=== PATIENT | female | born 1965 | race African-American/Black ===

== ENCOUNTER 2017-11-19 09:05 | Outpatient (CLI) | payer BC | END 2017-11-19 09:06 | disposition home or self-care (01) | LOC: BICMAMMO 09:05 | PROVIDERS: ATTEND Family Medicine | DX: Z12.31 Encounter for screening mammogram for malignant neoplasm of breast (principal) | CPT/HCPCS: 77063; 77067 ==

== ENCOUNTER 2018-05-11 15:19 | Outpatient (CLI) | payer BC ==
--- NOTE | 2018-05-11 17:07 | MRI ---
MRI OF THE LUMBAR SPINE WITHOUT CONTRAST: 05/11/18 COMPARISON: None. HISTORY: Low back pain and pain extends down the left leg. TECHNIQUE: Multiplanar and multisequence MRI images were obtained of the lumbar spine without contrast. FINDINGS: The vertebral bodies and intervertebral discs demonstrate normal height and alignment without fractur e or subluxation. The conus medullaris terminates normally at L1. The prevertebral and paraspinal sof t tissues are unremarkable. T12-L1: Unremarkable. L1-2: Unremarkable. L2-3: No significant posterior bulge or protrusion. Mild bilateral posterior facet arthrosis. No neur al foraminal or central canal stenosis. L3-4: No significant posterior bulge or protrusion. Mild bilateral posterior facet arthrosis. No cent ral canal stenosis. Mild bilateral neural foraminal stenosis. L4-5: No significant posterior bulge or protrusion. No posterior facet arthrosis. No neural foraminal or central canal stenosis. L5-S1: No significant posterior bulge or protrusion. Mild to moderate bilateral posterior facet arthr osis. No central canal stenosis. Mild bilateral neural foraminal stenosis. IMPRESSION: Mild degenerative changes of the lumbar spine as above. POS: [facility]
== END 2018-05-11 15:20 | disposition home or self-care (01) ==
LOC: TBSIIMAG 15:19
PROVIDERS: ATTEND Family Medicine
DX: M54.5 Low back pain (principal); M47.896 Other spondylosis, lumbar region; M47.897 Other spondylosis, lumbosacral region
CPT/HCPCS: 72148

== ENCOUNTER 2018-11-22 08:39 | Outpatient (CLI) | payer BC | END 2018-11-22 08:40 | disposition home or self-care (01) | LOC: BICMAMMO 08:39 | PROVIDERS: ATTEND Family Medicine | DX: Z12.31 Encounter for screening mammogram for malignant neoplasm of breast (principal) | CPT/HCPCS: 77063; 77067 ==

== ENCOUNTER 2019-06-06 08:37 | Outpatient (CLI) | payer BC ==
--- NOTE | 2019-06-06 10:14 | RAD ---
LEFT MIDDLE FINGER 3 VIEWS: HISTORY: Injury and pain in the left middle finger on the DIP joint. FINDINGS/IMPRESSION: No acute fracture or dislocation is seen. POS: [facility]
== END 2019-06-06 08:38 | disposition home or self-care (01) ==
LOC: BICRAD 08:37
PROVIDERS: ATTEND Family Medicine
DX: S69.92XA Unspecified injury of left wrist, hand and finger(s), initial encounter (principal)

== ENCOUNTER 2019-12-21 09:24 | Outpatient (CLI) | payer BC ==
--- NOTE | 2019-12-21 10:11 | MMO ---
Bilateral MAMMO Bilat Screen [facility]. CLINICAL HISTORY: Patient is 54 years old and is seen for screening. VIEWS: The views performed were: bilateral craniocaudal with tomosynthesis and bilateral mediolateral oblique with tomosynthesis. FILMS COMPARED: The present examination has been compared to prior imaging studies performed at [facility] on 05/12/2016, 11/10/2016, 11/19/2017 and 11/22/2018. This study has been interpreted with the assistance of computer-aided detection. MAMMOGRAM FINDINGS: There are scattered fibroglandular densities. There are no suspicious masses, suspicious calcifications, or new areas of architectural distortion. IMPRESSION: THERE IS NO MAMMOGRAPHIC EVIDENCE OF MALIGNANCY. A ROUTINE FOLLOW-UP MAMMOGRAM IN 1 YEAR IS RECOMMENDED. THE RESULTS OF THIS EXAM WERE SENT TO THE PATIENT. ACR BI-RADS Category 1 - Negative MAMMOGRAPHY NOTE: 1. A negative mammogram report should not delay a biopsy if a dominant of clinically suspicious mass is present. 2. Approximately 10% to 15% of breast cancers are not detected by mammography. 3. Adenosis and dense breasts may obscure an underlying neoplasm. Reported by: AYLA HOBBS MD Electonically Signed: [id number]
== END 2019-12-21 09:25 | disposition home or self-care (01) ==
LOC: BICMAMMO 09:24
PROVIDERS: ATTEND Family Medicine
DX: Z12.31 Encounter for screening mammogram for malignant neoplasm of breast (principal)
CPT/HCPCS: 77063; 77067

== ENCOUNTER 2021-01-01 07:47 | Outpatient (CLI) | payer BC | END 2021-01-01 07:48 | disposition home or self-care (01) | LOC: BICMAMMO 07:47 | PROVIDERS: ATTEND Family Medicine | DX: Z12.31 Encounter for screening mammogram for malignant neoplasm of breast (principal) | CPT/HCPCS: 77063; 77067 ==

== ENCOUNTER 2021-02-18 10:38 | Outpatient (CLI) | payer BC | END 2021-02-18 10:39 | disposition home or self-care (01) | LOC: BICRAD 10:38 | PROVIDERS: ATTEND Specialist | DX: M51.16 Intervertebral disc disorders with radiculopathy, lumbar region (principal); M47.26 Other spondylosis with radiculopathy, lumbar region | CPT/HCPCS: 72110 ==

== ENCOUNTER 2021-12-27 15:32 | Outpatient (CLI) | payer BC | END 2021-12-27 15:33 | disposition home or self-care (01) | LOC: ULT 15:32 | PROVIDERS: ATTEND Family Medicine | DX: I82.409 Acute embolism and thrombosis of unspecified deep veins of unspecified lower extremity (principal) | CPT/HCPCS: 93970 ==

== ENCOUNTER 2022-03-05 08:52 | Outpatient (CLI) | payer BC | END 2022-03-05 08:53 | disposition home or self-care (01) | LOC: BICRAD 08:52 | PROVIDERS: ATTEND Family Medicine | DX: R05.9 Cough, unspecified (principal) | CPT/HCPCS: 71046 ==

== ENCOUNTER 2024-01-21 13:43 | Outpatient (CLI) | payer BC | END 2024-01-21 13:44 | disposition home or self-care (01) | LOC: BICRAD 13:43 | PROVIDERS: ATTEND Family Medicine | DX: R05.1 Acute cough (principal) | CPT/HCPCS: 71046 ==

== ENCOUNTER 2024-03-18 14:13 | Outpatient (CLI) | payer BC | END 2024-03-18 14:14 | disposition home or self-care (01) | LOC: BICMAMMO 14:13 | PROVIDERS: ATTEND Family Medicine | DX: Z12.31 Encounter for screening mammogram for malignant neoplasm of breast (principal) | CPT/HCPCS: 77063; 77067 ==